=== PATIENT | male | born 1950 | race Native Hawaiian/Other Pacific Islander ===

== ENCOUNTER 2017-07-06 09:18 | Outpatient (CLI) | payer OTHER | END 2017-07-06 10:20 | disposition home or self-care (01) | LOC: RESP 09:18 → EDBD 09:18 → RESP 09:30 | DX: R06.02 Shortness of breath (principal) | CPT/HCPCS: 94640; 94664 ==

== ENCOUNTER 2018-03-08 08:36 | Outpatient (CLI) | payer OTHER | END 2018-03-08 21:46 | disposition home or self-care (01) | LOC: CT 08:36 | DX: R91.8 Other nonspecific abnormal finding of lung field (principal); Z87.891 Personal history of nicotine dependence ==